=== PATIENT | male | born 1985 | race Caucasian/White ===

== ENCOUNTER 2017-06-28 10:24 | Inpatient (IN) | payer SELFPAY ==
--- NOTE | 2017-06-28 14:48 | HP ---
PRIMARY CARE PHYSICIAN: [facility] call admission. REASON FOR ADMISSION: [facility] Emergency Room transfer for right-sided facial cellulitis. HISTORY OF PRESENT ILLNESS: A 31-year-old male, who has a history of cannabis abuse, who initially w ent to [facility] Emergency Room for evaluation of right-sided facial swelling. The patient reports that he is suffering from right lower teeth pain for about 2 weeks. The patien t also has a history of dental caries in the past. The patient reports that the right-sided mandible started getting swelling and it rapidly gotten worse within 2 days. The patient was not able to ope n his mouth. He was not having any fever, but he was having throbbing pain in his right side of the face and mandible area. He denies any diabetes. He denies any chronic immunosuppressive therapy. H e denies any earache, fever, or sore throat. He denies any trauma. He denies any chills. PAST MEDICAL HISTORY: Reviewed and negative. PAST SURGICAL HISTORY: Reviewed and negative. PAST PSYCHIATRIC HISTORY: Reviewed and negative. SOCIAL HISTORY: The patient denies any smoking. He denies any alcohol abuse, but he drinks alcohol socially. He smokes cigar at very occasionally. He uses marijuana periodically and last use was yes terday. FAMILY HISTORY: No strong family history of premature coronary artery disease, stroke or cancer. REVIEW OF SYSTEMS: Please see my HPI for pertinent positive and negative. All other review of syste ms reviewed and negative except as mentioned in the HPI. Constitutional: Weight loss or gain, ability to conduct usual activities. Skin: Rash, itching. Eyes: Double vision, pain. ENT/Mouth: Nose bleeding, neck stiffness, pain, tenderness. Cardiovascular: Palpitations, dyspnea on exertion, orthopnea. Respiratory: Shortness of breath, wheezing, cough, hemoptysis, fever or night sweats. Gastrointestinal: Poor appetite, abdominal pain, heartburn, nausea, vomiting, constipation, or diarrhea. Genitourinary: Urgency, frequency, dysuria, nocturia. Musculoskeletal: Pain, swelling. Neurologic/Psychiatric: Anxiety, depression. Allergy/Immunologic: Skin rash, bleeding tendency. EMERGENCY ROOM COURSE: The patient has received morphine 4 mg, clindamycin and IV fluid at [facility]. ALLERGIES: No known drug allergy. CURRENT HOME MEDICATIONS: The patient was taking Aleve [id number] as needed basis. PHYSICAL EXAMINATION: VITAL SIGNS: Currently, blood pressure 169/97, pulse 80, respiratory rate 20, temperature 98.8, satu ration 98% on room air, weight 83.9 kilograms. GENERAL: The patient is currently alert and awake. No acute distress. HEENT: Normocephalic, atraumatic. Eyes: Pupils round, reactive to light. Extraocular muscle intac t. ENT: Oropharynx within normal limits. Right-sided facial swelling noted. Right-sided facial tender ness with warmth. NECK: Supple, no JVD, no thyromegaly, no carotid bruit, no jugular venous distention. LUNGS: Clear to auscultation without any rhonchi or rales. CARDIAC: S1, S2 regular. No murmur, no gallop, no rub. ABDOMEN: Soft, bowel sounds present, nontender, nondistended. No organomegaly, no mass, no suprapub ic tenderness. BACK: Unremarkable, no CVA tenderness. EXTREMITIES: Upper extremity: Passive movements of all joints are normal. Lower extremities: No e james. Good peripheral pulsation. SKIN: No skin rash. HEMATOLOGICAL: No lymphadenopathy. PSYCHIATRIC: Normal affect. NEUROLOGIC: Nonfocal examination. ADDITIONAL INFORMATION: The patient reports that he saw a dentist in [place] yesterday and he was gi pako antibiotic therapy. He started taking antibiotic therapy, but he was told that if facial swellin g get worse, then he needs to go to emergency room and his swelling had gotten worse overnight. He o nly took 3 pills of amoxicillin yesterday. He was not able to eat or drink anything because he was n ot able to open his mouth. At [facility] Room, the patient was given morphine, clindamycin, Zofran and he was found with leukocytosis and extensive subcutaneous edema of the right cheek and subsequently he was transf erred to our hospital for higher level of care. SIGNIFICANT LABORATORY DATA: CBC: WBC 17.1, hemoglobin 16.9, platelet 188. BMP: Sodium 140, potas sium 3.9, chloride 105, glucose 124, blood urea nitrogen 9, creatinine 0.8. CT of the soft tissue ne ck showing right-sided lymphadenopathy reactive, peribronchial disease noted in the mandible and maxi lla appears to involve mostly posterior right maxillary molar, underlying osteomyelitis cannot be ent irely excluded, chronic appearing ethmoid sinusitis, extensive subcutaneous right-sided facial edema. ASSESSMENT AND PLAN: 1. Right-sided facial cellulitis. 2. Facial swelling with the mandible swelling with peribronchial disease, rule out underlying osteom yelitis of mandible. 2. Chronic appearing ethmoid sinusitis. 3. Leukocytosis. 4. Cannabis abuse. PLAN: Admission to medical floor. Oral surgeon consultation. The patient will need incision and de bridement. The patient may need tooth extraction. Pain control with morphine p.r.n. basis, empiric antibiotic therapy with clindamycin 600 mg IV q.6 hourly, probiotics, Florastor 250 mg p.o. daily. I V fluid for hydration. DVT prophylaxis with SCD boots because the patient is low risk for DVT and no need of Lovenox. Gastrointestinal prophylaxis, Pepcid 20 mg p.o. b.i.d. CODE STATUS: The patient is FULL CODE. The patient does not have any surrogate decision maker. Disposition plan based on clinical course. While in hospital, we also provided counseling to avoid i llicit drugs including Cannabis abuse. Plan of care discussed with the patient in detail.
[2017-06-28] MEDS ORDERED: Morphine 4 MG/ML VIAL ONE (14:58)
[2017-06-28] MEDS ORDERED: Ondansetron ODT 4 MG TAB PO PRN (16:05)
[2017-06-28] MEDS ORDERED: hydrALAZINE 20 MG/ML VIAL SLOW IVP PRN (16:05)
[2017-06-28] MEDS ORDERED: Senokot 8.6 MG TAB PO PRN (16:05)
[2017-06-28] MEDS ORDERED: Acetaminophen 325 MG TAB PO PRN (16:05)
[2017-06-28] MEDS ORDERED: Sodium Chloride 0.65% Nasal 44 ML BOT EA NARE PRN (16:05)
[2017-06-28] MEDS ORDERED: Milk Of Magnesia 30 ML UDCUP PO PRN (16:05)
[2017-06-28] MEDS ORDERED: Mag-Al 1200 mg/1200 mg/30 ML UDCUP PO PRN (16:05)
[2017-06-28] MEDS ORDERED: Eucerin (Mineral Oil/Petrolatum,White) 30 gm Jar TOP PRN (16:05)
[2017-06-28] MEDS ORDERED: Ondansetron HCl/PF 4 MG/2 ML Vial IVP PRN (16:05)
[2017-06-28] MEDS ORDERED: Chloraseptic Spray 180 ml Bottle PO PRN (16:05)
[2017-06-28] MEDS ORDERED: Diabetic Tussin 200 MG/10 ML UDCUP PO PRN (16:05)
[2017-06-28] MEDS ORDERED: Loratadine 10 MG TAB PO PRN (16:05)
[2017-06-28] MEDS ORDERED: Zolpidem Tartrate 5 MG TAB PO PRN (16:05)
[2017-06-28] MEDS ORDERED: Loperamide HCl 2 MG CAP PO PRN (16:05)
[2017-06-28] MEDS ORDERED: Artificial Tears 18 DROP/0.9 ML EA EYE PRN (16:05)
[2017-06-28] MEDS ORDERED: HYDROcodone/Acetaminophen 5/325 mg Tablet PO PRN (16:05)
[2017-06-28 16:16] VITALS: BMI 23.4
[2017-06-28] MEDS: Sodium Chloride 0.9% 1,000 ML IV SCH ×2 (17:18→22:39)
[2017-06-28] MEDS: Chlorhexidine Gluconate 15 ML UDCUP SSP SCH ×2 (17:19→23:34)
[2017-06-28] MEDS: Clindamycin/D5W 600 MG in Premix Bag 1 BAG IVPB SCH ×2 (17:19→22:37)
[2017-06-28] MEDS: Ketorolac Tromethamine 30 MG/ML VIAL IVP PRN (18:27)
[2017-06-28] MEDS: Famotidine 20 MG TAB PO SCH (21:00)
--- NOTE | 2017-06-29 01:59 | CON ---
DATE OF CONSULTATION: 06/28/2017 CONSULTING PHYSICIAN: Dr. Pineda with the hospitalist service. HISTORY OF PRESENT ILLNESS: This is a 31-year-old male with a several day history of tooth pain in t he right posterior mandible. The patient awoke the day prior with swelling in the right perimandibul ar region, which continued to progress into today. The patient ultimately presented the day prior ac [facility] to his dentist in [place], who put him on some amoxicillin and sent him home with directions t o follow up in the emergency room if the situation got worse. Today, when the swelling and discomfor t, increased and got worse, patient presented to [facility] ER in [place] and was subsequently transferred to [place] for higher level of care. PAST MEDICAL HISTORY: Negative. PAST SURGICAL HISTORY: Negative. HOME MEDICATIONS: None. ALLERGIES: No known drug allergies. SOCIAL HISTORY: Positive for daily marijuana. Negative for tobacco smoking, alcohol, or other drugs . FAMILY HISTORY: Negative. REVIEW OF SYSTEMS: Patient reports pain and discomfort at the right perimandibular region, which is improved since the initiation of IV antibiotics in the hospital earlier today. Otherwise, review of systems negative. PHYSICAL EXAMINATION: VITAL SIGNS: Temperature 97.5, blood pressure 140/87, pulse 79, respiratory rate 16, 98% oxygen satu ration on room air. GENERAL: Alert and oriented x3. No apparent distress. HEAD AND NECK: The patient has a moderate edema with mild induration over the right cheek and latera l posterior mandibular region on the right. The inferior border of the mandible is palpable througho ut. The submandibular space is soft bilaterally and is nontender to palpation. The sublingual space is soft bilaterally, although there is some mild edema of the tissues on the right side. Oropharynx is within normal limits. The patient has rampant decay throughout the mouth with multiple decayed a nd retained roots of the right posterior mandible as well as a right posterior maxilla. Intraorally, the patient has edema and cellulitis involving the right posterior mandibular buccal vestibule with possible mild fluctuance, but no obvious fluid collection. Maximum interincisal opening is within no rmal limits. CARDIOVASCULAR: Regular rate and rhythm. PULMONARY: Breathing without difficulty. IMAGING: CT scan of the neck from the outside hospital with contrast is unviewable on the provided d isk. The radiologist's read of that CT neck is as follows: Extensive subcutaneous edema of the righ t cheek with no identifiable abscess. The radiologist also read. Multiple radiolucencies associated with the apices of infected and decayed teeth involving the right maxilla and mandible. As noted ab ad, though throughout the radiologist description of scan, the radiologist was unable to identify a drainable fluid collection. LABORATORY DATA: The patient had a white blood cell count of 17 at the outside hospital. ASSESSMENT: A 31-year-old male with odontogenic infection involving the right mandibular molars with associated buccal vestibular edema and possible abscess. The patient is actively improving on IV an tibiotics in the hospital and has no signs of any airway compromise or progression of the infection d own into the deeper aspects of the neck. PLAN: 1. Continue IV antibiotics and keep patient n.p.o. past midnight. The patient's clinical status is consistent with outpatient management and the patient is to be transferred to my office first thing i n the morning with a driver service technician and n.p.o. status for the indicated outpatient procedure. I will remove the infected teeth and a draining any abscess of the buccal vestibule. 2. Peridex oral mouth rinse b.i.d.
[2017-06-29 04:02] VITALS: TEMP 98.1
[2017-06-29] MEDS: Ketorolac Tromethamine 30 MG/ML VIAL IVP PRN (04:21)
[2017-06-29] MEDS: Clindamycin/D5W 600 MG in Premix Bag 1 BAG IVPB SCH (04:23)
[2017-06-29] MEDS: Chlorhexidine Gluconate 15 ML UDCUP SSP SCH (05:05)
[2017-06-29 05:43] LABS: #Eosinphils 0.1 thou/uL (0.0-0.7); #Lymphocytes 1.6 thou/uL (1.20-3.40); #Monocytes 1.3 thou/uL (0.11-0.59); #Neutrophils 7.5 thou/uL (1.40-6.50); %Basophils 0.2 % (0.0-1.0); %Eosinophils 0.7 % (0.0-10.0); %Lymphocytes 14.8 % (21.0-51.0); %Monocytes 12.2 % (0.0-10.0); Hemoglobin 14.8 g/dL (14.0-18.0); Mean Corpuscular HGB CONC 34.5 g/dL (32.0-36.0); Mean Corpuscular Hemoglobin 32.4 pg (27.0-31.0); Mean Corpuscular Volume 93.9 fl (80.0-94.0); Mean Platelet Volume 7.8 fL (7.4-10.4); Platelet Count 155 thou/uL (130-400); Red Blood Cell (RBC) Count 4.58 mill/uL (4.70-6.10); White Blood Cell (WBC) Count 10.5 thou/uL (4.8-10.8)
[2017-06-29 06:01] LABS: ALT (SGPT) 12 U/L (8-55); AST (SGOT) 10 U/L (5-34); Alkaline Phosphatase 64 U/L (40-150); Anion Gap 11 mmol/L (10-20); BUN (Urea Nitrogen) 8 mg/dL (8.9-20.6); Bilirubin, Total 0.6 mg/dL (0.2-1.2); Calc. Creatinine Clearance 162 mL/min (70-130); Calcium 9.4 mg/dL (7.8-10.44); Carbon Dioxide 27 mmol/L (22-29); Chloride 106 mmol/L (98-107); Estimated GFR-MDRD Greater than 90; Globulin 2.5 g/dL (2.4-3.5); Glucose 93 mg/dL (70-105); Potassium 3.6 mmol/L (3.5-5.1); Protein, Total 6.5 g/dL (6.0-8.3); Sodium 140 mmol/L (136-145)
[2017-06-29 07:26] VITALS: BP 147/83
[2017-06-29] MEDS: Famotidine 20 MG TAB PO SCH (07:57)
[2017-06-29] MEDS ORDERED: Saccharomyces boulardii 250 MG CAP PO SCH (09:00)
--- NOTE | 2017-06-29 11:51 | DIS ---
PRIMARY CARE PHYSICIAN: [facility] call admission. DATE OF ADMISSION: 06/28/2017 DATE OF DISCHARGE: 06/29/2017 DISCHARGE DISPOSITION: Home. PRIMARY DISCHARGE DIAGNOSES: Dental abscess, leukocytosis, right-sided facial cellulitis. SECONDARY DISCHARGE DIAGNOSIS: Cannabis abuse. PRIMARY PROCEDURE/OPERATION: None. RADIOLOGICAL INVESTIGATION: This patient had CT neck soft tissue at [facility] in [place]. SIGNIFICANT LABORATORIES: WBC 10.5, hemoglobin 14.8, platelet 155. Sodium 140, creatinine 0.76. LF T normal. DISCHARGE MEDICATIONS: Chlorhexidine gluconate 15 mL SSP b.i.d., clindamycin 300 mg p.o. q.6 hourly for 7 days, Florastor 250 mg p.o. daily for 7 days. CONTRAINDICATIONS: None. CODE STATUS: FULL CODE. INPATIENT CONSULTANTS: Dr. Bk Salmon was consulted while in hospital. TEST RESULTS PENDING ON DISCHARGE: None. ALLERGIES: No known drug allergy. DISCHARGE PLAN: The patient is discharged from hospital to Dr. Bk Salmon's clinic where he wi ll have I&D'd or tooth extraction done and subsequently the patient will be discharged from there as well. HOSPITAL COURSE: A 31-year-old male who has dental pain for about a couple of weeks and subsequently he has swelling on the right side of the face around mandible. He went to see dentist and he was gi pako amoxicillin without any improvement, and that is why he went to [facility] wher e he had CT soft tissue neck, which showed abscess and cellulitis. The patient was admitted in our hospital. We treated him with IV fluid, clindamycin, pain medication . Dr. Bk Salmon was consulted and he recommended to do procedure in his office. This morning , we discharge him to his office and he will have procedure done there and subsequently he will follo w up with the dentist as an outpatient basis. All new medication prescriptions sent to his pharmacy. The patient is seen and examined at bedside today and the plan of care discussed with him.
== END 2017-06-29 09:16 | disposition home or self-care (01) | DRG 603 ==
LOC: ERS 10:24 → ONC 14:07
PROVIDERS: ADMIT Internal Medicine; ATTEND Internal Medicine
DX: L03.211 Cellulitis of face; Z72.0 Tobacco use; J32.2 Chronic ethmoidal sinusitis; F12.10 Cannabis abuse, uncomplicated; J98.09 Other diseases of bronchus, not elsewhere classified; D72.829 Elevated white blood cell count, unspecified; K04.7 Periapical abscess without sinus
CPT/HCPCS: 36415; 80053; 85025; 96361; 96374; J1885; J2270; J3490